=== PATIENT | male | born 1985 | race Caucasian/White ===

== ENCOUNTER 2024-10-31 12:31 | Outpatient (CLI) | payer OTHER, SELFPAY ==
--- NOTE | 2024-10-31 13:00 | CRLHL7_ITS ---
For Patients: As a result of the Century Cures Act, medical imaging exams and procedure reports are released immediately into your electronic medical record. You may view this report before your referring provider. If you have questions, please contact your health care provider. INDICATION: Recurrent tonsillitis. Adenopathy. COMPARISON: None. TECHNIQUE: CT soft tissue neck with IV contrast. Isovue 370, 141 cc. FINDINGS: Normal bilateral parotid and submandibular glands. Normal thyroid gland. Mildly enlarged bilateral level 2A lymph nodes measuring approximately 19 mm in maximal diameter on the right and 17 mm maximal diameter on the left (series 3, image 36). These lymph nodes however maintain their reniform appearance. No other enlarged cervical lymph nodes in the neck. No supraclavicular superior mediastinal adenopathy. Nasopharynx and oropharynx are clear. No inflammation within the parapharyngeal fat pads are retro space. There is symmetric mild enlargement of the bilateral tonsillar pillars but no significant enhancement or surrounding inflammatory change. Normal thickness of the epiglottis. No mass or asymmetry at the base of tongue. No enlargement of the sublingual tonsils. Normal glottis was symmetric vocal cords. Lung apices are clear. Normal alignment of the cervical spine. No prevertebral soft tissue swelling. Visualized paranasal sinuses mastoid air cells are clear. IMPRESSION: 1. Mildly enlarged bilateral 2A cervical lymph nodes. Otherwise, no adenopathy elsewhere. 2. Normal deep soft tissues of the neck. No inflammation within the paravertebral fat pads or retropharyngeal space 3. Symmetric mild enlargement of the bilateral tonsillar pillars but with no enhancement or surrounding inflammation. 4. No prevertebral soft tissue swelling Please note that all CT scans at this facility use dose modulation, iterative reconstruction, and/or weight-based dosing when appropriate to reduce radiation dose to as low as reasonably achievable. Dictated by Anselmo Gutierrez MD @ 11/01/2024 8:24:58 AM (Electronically Signed)
== END 2024-10-31 12:32 | disposition home or self-care (01) ==
PROVIDERS: PCP Internal Medicine; Visit Provider Internal Medicine
DX: J03.91 Acute recurrent tonsillitis, unspecified (principal); R59.1 Generalized enlarged lymph nodes; J35.1 Hypertrophy of tonsils
CPT/HCPCS: 70491; Q9967

== ENCOUNTER 2025-03-31 11:53 | Emergency (ER) | payer OTHER, SELFPAY ==
--- OUTSIDE RECORDS SUMMARY | 2025-03-31 11:54 | XMS_ITS | Clinical Summary ---
Author Organization [facility] Address [address] [place] [id number] Care Team Providers Care Ladle Liner Name Role Phone Clinic, No Pcp Or Primary Care Provider Unavaila ble Allergies No known active allergies Medications No known medications Active Problems No known active problems Social History Tobacco Use Types Packs/Day Years Used Date Smoking Tobacco: Never Assessed Social Connections Answer Date Recorded Do you often feel lonely or isolated from those around you? 0 08/11/2024 Financial Resource Strain Answer Date R ecorded Difficulty of Paying Living Expenses 3 11/17/2024 Difficulty of Paying Living Expenses Not on file 11/17/2024 Food Insecurity Answer Date Recorded Do you worry your food will run out before you are able to buy more? 1 08/11/2024 Transportation Needs Answer Date Record ed Does lack of transportation keep you from medica l appointments? 1 08/11/2024 Does lack of transportation keep you from work, meetings or getting things that you need? 1 08/11/2024 Housing Stability Answer Date Recorded What is your housing situation today? 1 08/11/2024 Utilities Answer Date Recorded Do you have trouble paying f or utilities (for example, heat, electricity, water, phone)? 1 08/11/2024 Sex and Gender Information Value Date Recorded Sex Assigned at Not on file Legal Sex Male 2:23 PM CDT Gender Identity Not on file Sexual Orientation Not on file Obstetrics History Last Filed Vital Signs Vital Sign Reading Time Taken Comments Blood Pressure 133/60 08/11/2024 2:00 PM CDT Pulse 69 08/11/2024 2:00 PM CDT Temperature 36.3 C (97.4 F) 08/11/2024 2:00 PM CDT Respiratory Rate 18 08/11/2024 2:00 PM CDT Oxygen Saturation 97% 08/11/2024 2:00 PM CDT Inhaled Oxygen Concentration - - Weight 125.6 kg (277 lb) 08/11/2024 2:00 PM CDT Height - - Body Mass Index - - Plan of Treatment Health Maintenance Due Date Last Done Comments Tdap 1997 Depression screening for age 12+ 1998 HIV for age 15-65 2001 BMI (ht and wt on same day) for age 18+ 2004 Hepatitis C screening for ag e 18-79 2004 Hepatitis B series for 19+ ( 1 of 3 - 19+ 3-dose series) 2005 Tetanus booster 2006 Lipids for age 35-44 2021 COVID-19 vaccine series ( season) 2024 06/12/2021 Influenza Vaccine (Season Ended) 2025 Pneumococcal series for age 6-49 Aged Out No longer eligible based on patient's age to complete this topic Care Teams Ladle Liner Relationship Specialty Start Date End Date Clinic, No Pcp Or . PCP - General 08/11/24
[2025-03-31 11:57] VITALS: BP 154/94; PULSE 73; RESP 18; TEMP 37.1; O2SAT 97; BMI 38.0
--- NOTE | 2025-03-31 12:26 | ED_ITS ---
HPI - General Adult General Chief complaint: Extremity Pain/Injury, Upper Stated complaint: cramping in hands and forearms, twitchy onset 1 hr Time Seen by Provider: 03/31/25 12:04 History of Present Illness HPI narrative: This 39-year-old male comes in with concern about some cramping in his hands and tingling sensation in his face and hands. This occurred prior to arrival when he was at work. He states that he did have anxiety symptoms and may be almost like panic symptoms associated with this. Upon arrival here he is feeling a lot better. He arrives here with normal vital signs and is no longer having these symptoms. Related Data Home Medications ?Medication ?Instructions ?Recorded ?Confirmed No Known Home Medications 11/27/2411/17 Allergies Allergy/AdvReac Type Severity Reaction Status Date / Time No Known Drug Allergies Allergy Verified 11/27/24 09:14 Review of Systems Status of ROS: Reports: 10 or more systems reviewed and unremarkable except as noted in History and below Narrative: Constitutional: No fevers, no weight gain or loss. Eyes: No discharge. No vision changes. HENT: No congestion, no sore throat, no ear pain. Cardiovascular: No chest pain, no palpitations. Respiratory: No shortness of breath, no wheezes, no cough. Gastrointestinal: No abdominal pain, no vomiting, no diarrhea. Genitourinary: No dysuria, no hematuria. Musculoskeletal: Normal range of motion. Skin: No rashes, no pruritis. Neurological: No dizziness, weakness, speech change. Sensory change bilaterally as described above. Endo/Heme/Allergies: No bruising or bleeding. No polydipsia. Pysch: no suicidality, no insomnia. All other systems reviewed and are negative. [facility] Medical History (Updated 03/31/25 @ 12:31 by Felix Hines MD) Acute recurrent tonsillitis ?J03.91 - Acute recurrent tonsillitis, unspecified (ICD-10) Tonsillitis ?J03.90 - Acute tonsillitis, unspecified (ICD-10) Exam Narrative: Exam Narrative: Constitutional: Well-developed, well-nourished, no acute distress. HEENT: Normocephalic, atraumatic. Neck: Normal range of motion. Nontender. Supple. Heart: Regular. No murmurs. Normal rate. Intact distal pulses. Lungs: Clear to auscultation. No chest discomfort. No wheezes, rhonchi, or rales. Abdomen: Normal bowel sounds. Nontender. No rebound tenderness. Genitalia: Deferred. Back: No midline tenderness. Normal range of motion. Extremities: Normal range of motion. No injury. Skin: Intact. No rash. Warm. No erythema or pallor. Neurologic: No altered sensation. No weakness. Alert and oriented. No facial asymmetry. Tongue is midline. [id number] is normal. No pronator drift. 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 Able to raise each leg from the bed. Psychiatric: No suicidality. No depression. No insomnia. The patient states that he felt anxious during these symptoms. Nursing notes and vitals signs are reviewed. Const: Vital Signs, click to edit/add: Vital Signs - 24 hr 03/31/25 11:57 Temperature 98.7 F Pulse Rate [Pulse Oximeter] 73 Respiratory Rate 18 Blood Pressure [Ri ght Upper Arm] 154/94 H Pulse Oximetry 97 Oxygen Delivery Me thod Room Air Course Vital Signs Vital signs: Initial Vital Signs Temperature 98.7 F 03/31/25 11:57 Temperature Source Temporal Artery Scan 03/31/25 11:57 Pulse Rate 73 03/31/25 11:57 Respiratory Rate 18 03/31/25 11:57 Blood Pressure 154/94 H 03/31/25 11:57 Blood Pressure Mean 114 H 03/31/25 11:57 Blood Pressure Position Sitting 03/31/25 11:57 Pulse Oximetry 97 03/31/25 11:57 Oxygen Delivery Method Room Air 03/31/25 11:57 Vital Signs Temperature 98.7 F 03/31/25 11:57 Pulse Rate 73 03/31/25 11:57 Respiratory Rate 18 03/31/25 11:57 Blood Pressure 154/94 H 03/31/25 11:57 Pulse Oximetry 97 03/31/25 11:57 Oxygen Delivery Method Room Air 03/31/25 11:57 Temperature 98.7 F 03/31/25 11:57 Pulse Rate 73 03/31/25 11:57 Respiratory Rate 18 03/31/25 11:57 Blood Pressure 154/94 H 03/31/25 11:57 Pulse Oximetry 97 03/31/25 11:57 Oxygen Delivery Method Room Air 03/31/25 11:57 Medical Decision Making MDM Narrative Medical decision making narrative: This patient comes in reporting some bilateral paresthesias and feeling of cramping in his hands. These symptoms have completely resolved. He does states that there was anxiety accompanying these symptoms. His exam today is completely normal along with normal vital signs. I did discuss lab and imaging options and these were declined in a process of shared decision making. The patient states that he does have a couple follow-up appointments with his primary physician but otherwise is in good health. He is okay to be discharged home. Discharge Plan Discharge Clinical Impression: Paresthesias, Anxiety Patient Disposition: Home, Self-Care Condition: Improved Additional Instructions: Continue current plans. Follow up with MD as scheduled. Return if symptoms are recurrent or worsening. Prescriptions: No Action No Known Home Medications Follow Up/Referrals: Serge Abad MD [Primary Care Provider, Internal Medicine] Stand Alone Forms: Talking Data Info Instructions
== END 2025-03-31 12:37 | disposition home or self-care (01) ==
LOC: ED 12:38
PROVIDERS: Emergency Provider Emergency Medicine Emergency Medical Services; PCP Internal Medicine
DX: R20.2 Paresthesia of skin (principal); F41.9 Anxiety disorder, unspecified
CPT/HCPCS: 99282; 99283; 99284